=== PATIENT | female | born 1985 | race Caucasian/White ===

== ENCOUNTER 2017-01-13 15:15 | Emergency (ER) | payer MEDICAID ==
[~2017-01-13] VITALS: Ht 154.9 cm; Wt 54.9 kg
[2017-01-13 16:30] LABS: *URINE HCG, QUAL NEGATIVE (NEGATIVE)
[2017-01-13 16:34] LABS: *BILIRUBIN,URIN NEGATIVE (NEGATIVE); *BLOOD, URINE NEGATIVE (NEGATIVE); *CLARITY,URINE CLEAR (CLEAR); *COLOR,URINE LIGHT YELLOW (YELLOW); *KETONES,URINE NEGATIVE (NEGATIVE); *PROTEIN,URINE NEGATIVE (NEGATIVE); *UROBILINOGEN,URINE 0.2 E.U./dl (NORMAL); LEUKOCYTE ESTERASE ,URINE NEGATIVE (NEGATIVE); NITRITE, URINE NEGATIVE (NEGATIVE); PH,URINE 7.5 (5.0-8.0); UGLUCOSE NEGATIVE (NEGATIVE)
[2017-01-13 16:41] LABS: SQUAMOUS EPITHELIAL CELL,UR MODERATE /HPF (NONE SEEN); WBC,URINE 0-3 /HPF (0-3)
[2017-01-13 16:47] LABS: BASOPHILS % (AUTO) 0.5 % (0.0-2.0); EOSINOPHILS # (AUTO) 0.1 K/uL (0.0-0.7); EOSINOPHILS % (AUTO) 1.9 % (0.0-7.0); HEMATOCRIT 39.4 % (37-47); HEMOGLOBIN 13.1 G/DL (12.0-16.0); LYMPHOCYTES # (AUTO) 2.3 K/UL (0.8-4.8); LYMPHOCYTES % (AUTO) 34.9 % (20.5-51.5); MEAN CORPUSCULAR HEMOGLOBIN 28.8 UUG (27.0-31.0); MEAN CORPUSCULAR HGB CONC 33 g/dL (32.0-37.0); MEAN CORPUSCULAR VOLUME 86.2 FL (81.0-99.0); MONOCYTES # (AUTO) 0.6 K/UL (0.1-1.30); MONOCYTES % (AUTO) 8.7 % (0.0-11.0); NEUTROPHILS # (AUTO) 3.7 K/UL (1.8-8.9); PLATELET COUNT (AUTO) 171 K/UL (150-450); RED BLOOD CELL COUNT(AUTO) 4.57 MIL/UL (4.2-5.4); WHITE BLOOD COUNT (AUTO) 6.7 K/UL (4.0-11.2)
[2017-01-13 16:53] LABS: CREATININE 0.6 mg/dL (0.6-1.3); POTASSIUM 3.9 mmol/L (3.5-5.1)
[2017-01-13 16:59] LABS: BILIRUBIN,TOTAL 0.5 mg/dL (0.2-1.0)
--- NOTE | 2017-01-13 17:14 | NUR ---
Patient discharged to home in stable conditon. Written and verbal after care instructions given. Patient verbalizes understanding of instructions. Stressed follow up with pmd or return to ER for worsening s/s.
== END 2017-01-13 17:19 | disposition home or self-care (01) ==
LOC: ER 15:16
DX: S39.012A Strain of muscle, fascia and tendon of lower back, initial encounter (principal); X50.9XXA Other and unspecified overexertion or strenuous movements or postures, initial encounter; Y93.89 Activity, other specified; Y92.9 Unspecified place or not applicable; Y99.9 Unspecified external cause status
CPT/HCPCS: 36415; 84703; 85025; A4663; J1885

== ENCOUNTER 2018-07-07 22:24 | Emergency (ER) | payer MEDICAID ==
[~2018-07-07] VITALS: Ht 154.9 cm; Wt 54.4 kg
[2018-07-07 23:23] LABS: BASOPHILS % (AUTO) 0.5 % (0.0-2.0); EOSINOPHILS # (AUTO) 0.4 K/uL (0.0-0.7); EOSINOPHILS % (AUTO) 5.2 % (0.0-7.0); HEMATOCRIT 40.1 % (31.2-41.9); HEMOGLOBIN 13.4 g/dL (10.9-14.3); LYMPHOCYTES # (AUTO) 2.2 K/uL (20.0-40.0); LYMPHOCYTES % (AUTO) 29.3 % (20.5-51.5); MEAN CORPUSCULAR HEMOGLOBIN 29.4 uug (24.7-32.8); MEAN CORPUSCULAR HGB CONC 33 g/dL (32.3-35.6); MEAN CORPUSCULAR VOLUME 88.1 fL (75.5-95.3); MONOCYTES # (AUTO) 0.6 K/uL (2.0-10.0); MONOCYTES % (AUTO) 8.5 % (0.0-11.0); NEUTROPHILS # (AUTO) 4.3 K/uL (1.8-8.9); NEUTROPHILS % (AUTO) 56.5 % (38.5-71.5); PLATELET COUNT (AUTO) 195 K/uL (179-408); RED BLOOD CELL COUNT(AUTO) 4.56 MIL/uL (3.63-4.92); WHITE BLOOD COUNT (AUTO) 7.6 K/uL (3.8-11.8)
[2018-07-07 23:40] LABS: BILIRUBIN,DIRECT 0.1 mg/dL (0.0-0.2); BILIRUBIN,TOTAL 0.4 mg/dL (0.2-1.0); CREATININE 0.7 mg/dL (0.6-1.3); TOTAL PROTEIN, SERUM 7.8 g/dL (6.4-8.2)
[2018-07-07 23:49] LABS: *BILIRUBIN,URIN NEGATIVE (NEGATIVE); *CLARITY,URINE CLEAR (CLEAR); *KETONES,URINE NEGATIVE (NEGATIVE); *UROBILINOGEN,URINE 0.2 E.U./dl (NORMAL); LEUKOCYTE ESTERASE ,URINE NEGATIVE (NEGATIVE); NITRITE, URINE NEGATIVE (NEGATIVE); UGLUCOSE NEGATIVE (NEGATIVE)
[2018-07-07 23:50] LABS: *BLOOD, URINE TRACE (NEGATIVE)
--- NOTE | 2018-07-07 23:50 | NUR ---
PATIENT IN ROOM RESTING ON GURNY WITH NO DISTRESS NOTED
[2018-07-07 23:51] LABS: *COLOR,URINE STRAW (YELLOW)
[2018-07-07 23:58] LABS: *URINE HCG, QUAL NEGATIVE (NEGATIVE); BACTERIA,URINE NONE SEEN /HPF (NONE SEEN); RBC,URINE 0-3 /HPF (0-3); SQUAMOUS EPITHELIAL CELL,UR MODERATE /HPF (NONE SEEN); WBC,URINE 0-3 /HPF (0-3)
[2018-07-08] MEDS ORDERED: KETOROLAC TROMETHAMINE 30 MG INJ IVP ONE (00:15)
[2018-07-08] MEDS ORDERED: KETOROLAC TROMETHAMINE 30 MG INJ ONE (00:19)
[2018-07-08] MEDS ORDERED: KETOROLAC TROMETHAMINE 60 MG INJ IM ONE ×2 (00:28→00:30)
--- NOTE | 2018-07-08 00:31 | NUR ---
Patient discharged to home in stable conditon. Written and verbal after care instructions given. Patient verbalizes understanding of instructions. WALKED OUT OF ER WITH NO DISTRESS NOTED. PATIENT WAS GIVEN IBUPROFEN 600MG QID PRN RX
[2018-07-08 00:32] VITALS: BP 104/77
== END 2018-07-08 00:33 | disposition home or self-care (01) ==
LOC: ER 22:26
DX: M54.5 Low back pain (principal); R30.0 Dysuria; R50.9 Fever, unspecified
CPT/HCPCS: 36415; 80048; 80076; 81001; 83690; 84703; 85025; 96372; 99283; J1885 ×2; A4663

== ENCOUNTER 2020-10-25 13:50 | Emergency (ER) | payer MEDICAID ==
[~2020-10-25] VITALS: Ht 157.5 cm; Wt 63.0 kg
--- NOTE | 2020-10-25 14:17 | NUR ---
[email or web address], medical screening exam in progress
[2020-10-25 14:40] LABS: HEMATOCRIT 38.2 % (31.2-41.9); MEAN CORPUSCULAR HEMOGLOBIN 29.8 uug (24.7-32.8); MEAN CORPUSCULAR VOLUME 88.8 fL (75.5-95.3); PLATELET COUNT (AUTO) 170 K/uL (179-408)
[2020-10-25 14:46] LABS: CARBON DIOXIDE 27 mmol/L (21-32); CHLORIDE 103 mmol/L (98-107); CREATININE 0.5 mg/dL (0.6-1.3); GLUCOSE 79 mg/dL (74-106); POTASSIUM 3.5 mmol/L (3.5-5.1); UREA NITROGEN, BLOOD 12 mg/dL (7-18)
[2020-10-25 15:04] LABS: ALANINE AMINOTRANSFERASE 101 U/L (14-59); ALKALINE PHOSPHATASE 51 U/L (50-136); ASPARTATE AMINOTRANSFERASE 20 U/L (15-37); BILIRUBIN,DIRECT 0.1 mg/dL (0.0-0.2); BILIRUBIN,TOTAL 0.4 mg/dL (0.2-1.0); TOTAL PROTEIN, SERUM 7.1 g/dL (6.4-8.2)
--- NOTE | 2020-10-25 15:31 | NUR ---
Copies of all the tests' results were given to patient.
--- NOTE | 2020-10-25 15:40 | NUR ---
Patient discharged to home in stable condition with brisk steady gai. Written and verbal after care instructions given to patient. Patient verbalized understanding & compliance of instructions. Stressed follow up OB doctor or return to ER for worsening s/s.
== END 2020-10-25 15:41 | disposition home or self-care (01) ==
LOC: ER 13:57
DX: O20.0 Threatened abortion (principal); Z3A.01 Less than 8 weeks gestation of pregnancy
CPT/HCPCS: 36415; 70030-TC; 85025; 86850; 86900; 86901; A4663

== ENCOUNTER 2022-01-29 11:39 | Emergency (ER) | payer MEDICAID ==
[~2022-01-29] VITALS: Ht 157.5 cm; Wt 69.4 kg
[2022-01-29] MEDS ORDERED: PREN1TAB81 PO (12:05)
[2022-01-29] MEDS ORDERED: TURMERIC PO (12:05)
--- NOTE | 2022-01-29 12:10 | NUR ---
DR ROMAN AT BEDSIDE FOR EVALUATION.
[2022-01-29 12:21] LABS: CARBON DIOXIDE 27 mmol/L (21-32); CHLORIDE 104 mmol/L (98-107); CREATININE 0.7 mg/dL (0.6-1.3); GLUCOSE 98 mg/dL (74-106); UREA NITROGEN, BLOOD 9 mg/dL (7-18)
[2022-01-29 12:34] LABS: HEMATOCRIT 40.7 % (31.2-41.9); MEAN CORPUSCULAR HEMOGLOBIN 29.8 uug (24.7-32.8); PLATELET COUNT (AUTO) 215 K/uL (179-408)
--- NOTE | 2022-01-29 13:19 | NUR ---
Pt at rest, complained about chest pain, located at the left side, rated 8/10. ERMD not present in the ED, called the lounge and informed pt concern. Received phone order of Aspirin 325 mg, said he will input the order right after the call.
[2022-01-29] MEDS ORDERED: ASPIRIN 325 MG TABLET ONE (13:22)
[2022-01-29] MEDS ORDERED: ASPIRIN 81 MG TAB.CHEW PO ONE (13:30)
[2022-01-29] MEDS ORDERED: ASPIRIN 325 MG TABLET PO ONE (13:45)
[2022-01-29] MEDS ORDERED: SWABABLE VALVE TRANSFER SET EA MC ONE (14:02)
[2022-01-29] MEDS ORDERED: IV NORMAL SALINE 250 ML IV ONE (14:02)
[2022-01-29] MEDS ORDERED: IOHEXOL 350 100 ML INFUS..BTL ONE (14:02)
--- NOTE | 2022-01-29 15:08 | NUR ---
Patient discharged to home in stable condition. Written and verbal after care instructions given. Patient verbalizes understanding of instructions. Stressed follow up or return to ER for worsening s/s.
[2022-01-29 15:17] VITALS: BP 120/85
== END 2022-01-29 15:08 | disposition home or self-care (01) ==
LOC: ER 11:39
DX: R07.9 Chest pain, unspecified (principal); R79.1 Abnormal coagulation profile
CPT/HCPCS: 99285; 71275; 71045; 80048; 85025; 85379; 84484; 36415; 93005; Q9967; A4663